=== PATIENT | male | born 1970 | race African-American/Black ===

== ENCOUNTER 2021-04-26 06:47 | Inpatient (IN) | payer OTHER ==
[~2021-04-26] VITALS: Ht 177.8 cm; Wt 93.9 kg
[2021-04-26] VITALS (59 sets, daily range): BP systolic 48–240; BP diastolic 23–114
[2021-04-26] MEDS ORDERED: PROPOFOL 10MG/ML 100ML 100 ML IV ONE (07:15)
[2021-04-26] MEDS ORDERED: SUCCINYLCHOLINE CHLORIDE 200MG/10ML IV ONE (07:15)
[2021-04-26] MEDS ORDERED: MIDAZOLAM HCL 100 MG in DEXT 5% WATER 80 ML IV ONE (07:15)
[2021-04-26] MEDS ORDERED: DEXTROSE 50% WATER 50ML SYRINGE IV ONE ×2 (07:15)
[2021-04-26] MEDS ORDERED: ETOMIDATE 2MG/ML 10ML VIAL IV ONE ×2 (07:15→07:55)
[2021-04-26] MEDS ORDERED: SODIUM CHLORIDE 0.9% 2,000 ML IV ONE (07:15)
[2021-04-26] MEDS ORDERED: MIDAZOLAM 100MG/100ML PMX 100 ML IV NR (07:30)
[2021-04-26 07:33] LABS: CHLORIDE 109 mEq/L (98-107)
[2021-04-26 07:36] LABS: ETHANOL BLOOD < 10 mg/dL
[2021-04-26] MEDS ORDERED: NOREPINEPHRINE 8 MG in DEXT 5% WATER 242 ML IV PRN ×2 (07:45→14:00)
[2021-04-26] MEDS ORDERED: VECURONIUM BROMIDE 10 MG/VIAL IV ONE (07:55)
[2021-04-26] MEDS ORDERED: NOREPINEPHRINE 8MG/250ML PMX 250 ML IV ONE (08:00)
[2021-04-26 08:03] LABS: MEAN CORPUSCULAR HEMOGLOBIN 23.3 pg (28.0-32.0); MEAN CORPUSCULAR VOLUME 96.6 fL (80.0-94.0); MEAN PLATELET VOLUME 10.7 fl (7.4-10.4); PLATELET 115 x1000/uL (130-400); RED BLOOD CELL COUNT 0.55 mill/uL (4.7-6.1)
[2021-04-26 08:13] LABS: HEMATOCRIT. 5.4 % (42.0-52.0); HEMOGLOBIN. 1.3 g/dL (14.0-18.0)
[2021-04-26 08:43] LABS: NUCLEATED RED BLOOD CELLS 2 /100 WBC
[2021-04-26 08:44] LABS: PLATELET ESTIMATE DECREASED
[2021-04-26 10:21] LABS: CLARITY URINE CLOUDY (CLEAR); COLOR URINE YELLOW (YELLOW); KETONES URINE TRACE (NEGATIVE); LEUKOCYTE ESTERASE URINE NEGATIVE (NEGATIVE); NITRITE URINE NEGATIVE (NEGATIVE); OCCULT BLOOD URINE NEGATIVE (NEGATIVE); PROTEIN URINE 2+ (NEGATIVE); SPECIFIC GRAVITY URINE 1.012 (1.005-1.030); UROBILINOGEN URINE 0.2 E.U./dL (0.2-1.0)
[2021-04-26] MEDS ORDERED: NOREPINEPHRINE 8MG/250ML PMX 250 ML IV NR (10:37)
[2021-04-26 10:41] LABS: *AMPHETAMINES SCREEN URINE NEGATIVE (NEGATIVE); *BARBITURATES SCREEN URINE NEGATIVE (NEGATIVE); *BENZODIAZEPINES SCREEN URINE NEGATIVE (NEGATIVE)
[2021-04-26 10:42] LABS: *COCAINE SCREEN URINE PRESUMTIVE POSITIVE (NEGATIVE); CANNABINOID URINE SCREEN NEGATIVE (NEGATIVE); METHADONE URINE SCREEN NEGATIVE (NEGATIVE); OPIATES URINE SCREEN NEGATIVE (NEGATIVE); PHENCYCLIDINE URINE SCREEN NEGATIVE (NEGATIVE)
[2021-04-26] MEDS ORDERED: OCTREOTIDE ACETATE 50 MCG/ML 1ML IV NR (12:00)
[2021-04-26] MEDS ORDERED: OCTREOTIDE 1,000 MCG in SODIUM CHLORIDE 0.9% 100 ML IV SCH (12:00)
[2021-04-26] MEDS ORDERED: PANTOPRAZOLE SODIUM 40 MG/VIAL IV SCH (13:15)
[2021-04-26 13:33] LABS: HEMOGLOBIN 3.1 g/dL (14.0-18.0)
[2021-04-26 13:34] LABS: BG FRACTION INSPIRED OXYGEN 100; BG HCO3 ACT 6.1 mmol/L (22.0-26.0); BG PCO2 33.2 mmHg (35.0-45.0); BG PH 6.879 (7.350-7.450); BG PO2 53.7 mmHg (75.0-100.0); BG SAMPLE SITE RIGHT RADIAL; BG TOTAL HEMOGLOBIN < 4.5 g/dL (12.0-18.0); BG VENT MODE VENT - AC
[2021-04-26] MEDS ORDERED: DEXTROSE 5% WATER 1,000 ML IV SCH (14:00)
[2021-04-26] MEDS ORDERED: IPRATROPIUM/ALBUTEROL 0.5-3(2.5)MG/3ML NEB NEB PRN (14:00)
[2021-04-26] MEDS ORDERED: SODIUM BICARBONATE 8.4% 1 MEQ/ML 50ML SYR IV NR ×2 (14:30→18:30)
[2021-04-26] MEDS: NOREPINEPHRINE 32 MG in DEXT 5% WATER 218 ML IV PRN ×2 (15:49→22:15)
[2021-04-26] MEDS: SODIUM BICARBONATE 150 MEQ in DEXTROSE 5% WATER 1,000 ML IV SCH (15:57)
[2021-04-26] MEDS: BLOOD SUGAR DIAGNOSTIC STRIP TEST SCH ×2 (16:00→20:00)
[2021-04-26] MEDS ORDERED: VANCOMYCIN 2,000 MG in DEXT 5% WATER 500 ML IV NR (16:00)
[2021-04-26] MEDS ORDERED: PANTOPRAZOLE SODIUM 40 MG/VIAL IV ONE (17:19)
[2021-04-26] MEDS: PIPERACILLIN/TAZOBACTAM 3.375 G in DEXTROSE 5% WATER 50 ML IV SCH ×2 (17:22→23:45)
[2021-04-26] MEDS: PANTOPRAZOLE 80 MG in SODIUM CHLORIDE 0.9% 100 ML IV SCH (17:22)
[2021-04-26] MEDS: OCTREOTIDE 1,000 MCG in SODIUM CHLORIDE 0.9% 100 ML IV SCH (17:23)
[2021-04-26] MEDS: LACTULOSE 300 ML in WATER FOR IRRIGATION,STERILE 700 ML IR SCH (18:00)
[2021-04-26 18:13] LABS: BG BASE EXCESS -21.1 mmol/L (-2.0-2.0); BG CARBOXYHEMOGLOBIN 0.6 % (0.5-1.5); BG DEOXYHEMOGLOBIN 17.1 % (0.0-5.0); BG FRACTION INSPIRED OXYGEN 100; BG HCO3 ACT 7.8 mmol/L (22.0-26.0); BG OXYGEN SATURATION 82.6 % (92.0-98.5); BG OXYHEMOGLOBIN 81.3 % (94.0-97.0); BG PCO2 32.2 mmHg (35.0-45.0); BG PH 7.004 (7.350-7.450); BG PO2 58.7 mmHg (75.0-100.0); BG SAMPLE SITE RIGHT RADIAL; BG TOTAL HEMOGLOBIN 4.5 g/dL (12.0-18.0); BG VENT MODE VENT - AC
[2021-04-26] MEDS ORDERED: FUROSEMIDE 20MG/2ML VIAL IVP NR (20:45)
[2021-04-26] MEDS: PHENYLEPHRINE 100 MG in DEXT 5% WATER 240 ML IV PRN (21:39)
[2021-04-26 21:48] LABS: HEMOGLOBIN 4.7 g/dL (14.0-18.0)
[2021-04-26 21:49] LABS: HEMATOCRIT 15.7 % (42.0-52.0)
[2021-04-26 22:12] LABS: HAPTOGLOBIN <31.0 mg/dL (30-200)
[2021-04-26 22:15] LABS: FERRITIN 10 ng/mL (22-322)
[2021-04-26 22:18] LABS: FOLIC ACID (FOLATE) SERUM >20 ng/mL ng/mL (>5.38)
[2021-04-26 22:19] LABS: PHOSPHORUS 8.4 mg/dL (2.5-4.9)
[2021-04-26 22:24] LABS: HEPATITIS B SURFACE ANTIGEN NEGATIVE
[2021-04-26 22:29] LABS: VITAMIN B12 SERUM 1817 pg/mL (211-911)
[2021-04-26 22:34] LABS: D-DIMER > 35.20 mg/L FEU (<0.50); FIBRINOGEN < 50 mg/dL (200-400)
[2021-04-26 23:23] LABS: INR 3.8; PROTHROMBIN TIME 37.1 sec (9.6-11.0)
[2021-04-26] MEDS: HYDROCORTISONE SOD SUCCINATE 100 MG/2 ML VIAL IV SCH (23:45)
[2021-04-27] VITALS (117 sets, daily range): BP systolic 49–159; BP diastolic 18–125
[2021-04-27] MEDS: DEXTROSE 50% WATER 50ML SYRINGE IV PRN ×2 (00:08→05:04)
[2021-04-27] MEDS: BLOOD SUGAR DIAGNOSTIC STRIP TEST SCH ×8 (00:14→18:00)
[2021-04-27] MEDS: PANTOPRAZOLE 80 MG in SODIUM CHLORIDE 0.9% 100 ML IV SCH ×2 (02:18→11:26)
[2021-04-27] MEDS: LACTULOSE 300 ML in WATER FOR IRRIGATION,STERILE 700 ML IR SCH ×3 (02:32→15:27)
[2021-04-27] MEDS ORDERED: FUROSEMIDE 20MG/2ML VIAL IVP SCH (03:00)
[2021-04-27] MEDS: SODIUM BICARBONATE 150 MEQ in DEXTROSE 5% WATER 1,000 ML IV SCH ×3 (03:08→18:29)
[2021-04-27 03:14] LABS: HEMATOCRIT 29.3 % (42.0-52.0); HEMOGLOBIN 8.1 g/dL (14.0-18.0)
[2021-04-27] MEDS ORDERED: VANCOMYCIN 1 G PREMIX 200 ML IV SCH (04:00)
[2021-04-27] MEDS: NOREPINEPHRINE 32 MG in DEXT 5% WATER 218 ML IV PRN ×4 (04:55→21:35)
[2021-04-27] MEDS: PHENYLEPHRINE 100 MG in DEXT 5% WATER 240 ML IV PRN ×4 (06:15→21:34)
[2021-04-27] MEDS: VASOPRESSIN 20 UNIT in SODIUM CHLORIDE 0.9% 99 ML IV PRN ×3 (07:08→21:37)
[2021-04-27] MEDS: HYDROCORTISONE SOD SUCCINATE 100 MG/2 ML VIAL IV SCH ×3 (08:05→22:00)
[2021-04-27] MEDS: PIPERACILLIN/TAZOBACTAM 3.375 G in DEXTROSE 5% WATER 50 ML IV SCH ×3 (08:05→21:44)
[2021-04-27] MEDS ORDERED: PHYTONADIONE 10MG/ML AMP SUBCUT NR (08:30)
[2021-04-27 08:39] LABS: HEMATOCRIT. 30.6 % (42.0-52.0); HEMOGLOBIN. 7.6 g/dL (14.0-18.0); MEAN CORPUSCULAR HEMOGLOBIN 27.6 pg (28.0-32.0); MEAN PLATELET VOLUME 10.4 fl (7.4-10.4); RED BLOOD CELL COUNT 2.76 mill/uL (4.7-6.1); RED CELL DISTRIBUTION WIDTH 17.8 % (11.6-14.6)
[2021-04-27] MEDS ORDERED: DEXTROSE 10% WATER 1,000 ML IV SCH (08:45)
[2021-04-27] MEDS ORDERED: CALCIUM GLUCONATE 100MG/ML 10ML VIAL IV ONE (08:45)
[2021-04-27 08:46] LABS: MEAN CORPUSCULAR VOLUME 110.9 fL (80.0-94.0)
[2021-04-27] MEDS ORDERED: SODIUM BICARBONATE 8.4% 1 MEQ/ML 50ML SYR IV NR ×2 (09:00→18:15)
[2021-04-27] MEDS: OCTREOTIDE 1,000 MCG in SODIUM CHLORIDE 0.9% 100 ML IV SCH (09:13)
[2021-04-27] MEDS ORDERED: ALBUTEROL (0.083%) 2.5MG/3ML NEB HHN SCH (09:15)
[2021-04-27] MEDS ORDERED: SODIUM BICARBONATE 8.4% 1 MEQ/ML 50ML SYR IV SCH (09:15)
[2021-04-27 09:18] LABS: NUCLEATED RED BLOOD CELLS 5 /100 WBC; PLATELET ESTIMATE MARKEDLY DECREASED
[2021-04-27 09:19] LABS: PLATELET 46 x1000/uL (130-400)
[2021-04-27] MEDS ORDERED: CALCIUM GLUCONATE 1GM PREMIX 50 ML IV NR (10:00)
[2021-04-27] MEDS ORDERED: PANTOPRAZOLE SODIUM 40 MG/VIAL IV SCH (17:00)
[2021-04-27 17:17] LABS: HEMATOCRIT. 26.3 % (42.0-52.0); MEAN CORPUSCULAR HEMOGLOBIN 28.3 pg (28.0-32.0); MEAN CORPUSCULAR VOLUME 116.3 fL (80.0-94.0); RED BLOOD CELL COUNT 2.26 mill/uL (4.7-6.1); RED CELL DISTRIBUTION WIDTH 17.9 % (11.6-14.6)
[2021-04-27 17:27] LABS: HEMOGLOBIN. 6.4 g/dL (14.0-18.0)
[2021-04-27 17:45] LABS: PROTHROMBIN TIME > 100.0 sec (9.6-11.0)
[2021-04-27 17:49] LABS: INR > 10.0
[2021-04-27 18:00] LABS: NUCLEATED RED BLOOD CELLS 3 /100 WBC
[2021-04-27 18:02] LABS: PLATELET ESTIMATE DECREASED
[2021-04-27 18:04] LABS: MEAN PLATELET VOLUME 11.7 fl (7.4-10.4)
[2021-04-27 18:05] LABS: PLATELET 63 x1000/uL (130-400)
[2021-04-27] MEDS ORDERED: DEXTROSE 50% WATER 50ML SYRINGE IV NR (18:15)
[2021-04-27] MEDS ORDERED: INSULIN REGULAR (HUMULIN R) 300UNITS/3ML VIAL IV NR (18:15)
[2021-04-27] MEDS ORDERED: CALCIUM GLUCONATE 100MG/ML 10ML VIAL IV NR (19:00)
[2021-04-27 21:49] LABS: BASOPHILS % 0.4 % (0.0-2.0); EOSINOPHILS % 0.5 % (0.0-5.0); HEMOGLOBIN. 7.9 g/dL (14.0-18.0); LYMPHOCYTES % 19.6 % (20.0-50.0); MEAN CORPUSCULAR HEMOGLOBIN 28.4 pg (28.0-32.0); MEAN CORPUSCULAR VOLUME 119.4 fL (80.0-94.0); MONOCYTES % 3.9 % (2.0-8.0); NEUTROPHILS % 75.6 % (40.0-76.0); RED BLOOD CELL COUNT 2.77 mill/uL (4.7-6.1); RED CELL DISTRIBUTION WIDTH 18.8 % (11.6-14.6)
[2021-04-27 22:51] LABS: PLATELET ESTIMATE DECREASED
[2021-04-27 22:56] LABS: MEAN PLATELET VOLUME 10.3 fl (7.4-10.4); PLATELET 86 x1000/uL (130-400)
[2021-04-28] VITALS (18 sets, daily range): BP systolic 0–111; BP diastolic 0–79
[2021-04-28 00:04] LABS: CHLORIDE 95 mEq/L (98-107)
[2021-04-28] MEDS ORDERED: DEXTROSE 50% WATER 50ML SYRINGE IV SCH (02:45)
[2021-04-28] MEDS ORDERED: CALCIUM CHLORIDE 1GM/10ML SYR IV SCH (03:00)
[2021-04-28] MEDS ORDERED: INSULIN REGULAR (HUMULIN R) 300UNITS/3ML VIAL IV SCH (03:00)
[2021-04-28] MEDS: SODIUM BICARBONATE 150 MEQ in DEXTROSE 5% WATER 1,000 ML IV SCH (03:21)
[2021-04-28] MEDS: NOREPINEPHRINE 32 MG in DEXT 5% WATER 218 ML IV PRN (03:22)
[2021-04-28] MEDS: BLOOD SUGAR DIAGNOSTIC STRIP TEST SCH ×2 (04:00)
[2021-04-28] MEDS ORDERED: ALBUTEROL (0.083%) 2.5MG/3ML NEB ONE (04:12)
[2021-04-28] MEDS ORDERED: DEXTROSE 50% WATER 50ML SYRINGE IV ONE (08:37)
[2021-04-28] MEDS ORDERED: SODIUM BICARBONATE 8.4% 1 MEQ/ML 50ML SYR IV ONE (08:37)
[2021-04-28] MEDS ORDERED: ATROPINE SULFATE 1MG/10ML SYR ONE (08:37)
[2021-04-28] MEDS ORDERED: CALCIUM CHLORIDE 1GM/10ML SYR IV ONE (08:37)
[2021-04-28] MEDS ORDERED: EPINEPHRINE 0.1MG/ML (1:10,000) 10ML SYR ONE (08:37)
== END 2021-04-28 04:30 | DRG 720 ==
LOC: ER 06:47 → MICUSO 09:43 → EDBEDREQTM 09:44 → EDBEDREQ 09:44 → ENRESERV 13:20 → CVICU 14:51
PROVIDERS: ADMIT Internal Medicine; ATTEND Internal Medicine
PROC: 0BH17EZ Insertion of Endotracheal Airway into Trachea, Via Natural or Artificial Opening (ICD-10-PCS; principal; 2021-04-26)
PROC: 5A1945Z Respiratory Ventilation, 24-96 Consecutive Hours (ICD-10-PCS; 2021-04-26)
PROC: B54MZZA Ultrasonography of Right Upper Extremity Veins, Guidance (ICD-10-PCS; 2021-04-26)
PROC: 05HY33Z Insertion of Infusion Device into Upper Vein, Percutaneous Approach (ICD-10-PCS; 2021-04-26)
PROC: 30233N1 Transfusion of Nonautologous Red Blood Cells into Peripheral Vein, Percutaneous Approach (ICD-10-PCS; 2021-04-26)
PROC: 30233K1 Transfusion of Nonautologous Frozen Plasma into Peripheral Vein, Percutaneous Approach (ICD-10-PCS; 2021-04-27)
PROC: 30233R1 Transfusion of Nonautologous Platelets into Peripheral Vein, Percutaneous Approach (ICD-10-PCS; 2021-04-27)
PROC: 5A12012 Performance of Cardiac Output, Single, Manual (ICD-10-PCS; 2021-04-28)
DX: A41.9 Sepsis, unspecified organism (principal); K72.00 Acute and subacute hepatic failure without coma; I46.9 Cardiac arrest, cause unspecified; J96.01 Acute respiratory failure with hypoxia; J69.0 Pneumonitis due to inhalation of food and vomit; G93.41 Metabolic encephalopathy; N17.0 Acute kidney failure with tubular necrosis; E72.20 Disorder of urea cycle metabolism, unspecified; K92.0 Hematemesis; D62 Acute posthemorrhagic anemia; I12.0 Hypertensive chronic kidney disease with stage 5 chronic kidney disease or end stage renal disease; R65.21 Severe sepsis with septic shock; K70.10 Alcoholic hepatitis without ascites; E16.2 Hypoglycemia, unspecified; D69.6 Thrombocytopenia, unspecified; E43 Unspecified severe protein-calorie malnutrition; E87.0 Hyperosmolality and hypernatremia; F14.90 Cocaine use, unspecified, uncomplicated; E87.5 Hyperkalemia; N18.6 End stage renal disease; D68.9 Coagulation defect, unspecified; E86.1 Hypovolemia; Z20.822 Contact with and (suspected) exposure to COVID-19; K74.60 Unspecified cirrhosis of liver; M62.82 Rhabdomyolysis; F10.20 Alcohol dependence, uncomplicated; Z99.11 Dependence on respirator [ventilator] status; Z68.29 Body mass index [BMI] 29.0-29.9, adult
CPT/HCPCS: 36415; 36600; 71045; 76937; 80048; 80053; 80076; 80305; 80307; 80320; 80329; 81003; 82140; 82375; 82550; 82553; 82607; 82728; 82746; 82805; 82962; 83010; 83036; 83540; 83550; 83615; 83735; 84100; 84145; 84484; 85014; 85018; 85025; 85044; 85379; 85384; 86705; 86709; 86803; 86850; 86900; 86920; 86927; 87070; 87077; 87186; 87340; 87426; 93005; 93970; 94002; 94003; 94640; 99291; C1725; C9113; J0461; J0610; J1720; J1815; J1940; J2250; J2354; J2370; J2543; J2704; J3370; J3430; J3490; J7030; J7040; J7050; J7060; J7070; P9016; P9017; G0480; P9036